=== PATIENT | female | born 1955 | race Caucasian/White ===

== ENCOUNTER 2020-03-15 08:00 | Day surgery (SDC) | payer MEDICARE, OTHER ==
[2020-03-14 09:46] VITALS: BMI 34.5
[~2020-03-15 08:00] MED LIST: LACTATED RINGERS 1,000 ML IV SCH; LIDOCAINE 1% (10MG/ML) FOR IV START INTRADERMA PRN
[2020-03-15 08:35] VITALS: RESP 16; TEMP 97.4
[2020-03-15] MEDS ORDERED: PROPOFOL 10 MG/ML 20 ML VIAL IV ONE (08:35)
[2020-03-15] MEDS ORDERED: LIDOCAINE 1% INJ 10MG/ML (20 ML MDV) ONE (08:35)
[2020-03-15] MEDS ORDERED: LACTATED RINGERS 1,000 ML IV ONE (08:37)
[2020-03-15 08:41] LABS: Glucose,Whole Blood 174 mg/dL (75-99)
--- NOTE | 2020-03-15 08:55 | P.PCN ---
Date of Procedure: 03/15/20 Procedure(s) Performed: BRIEF HISTORY: Patient is a 65-year-old pleasant white female scheduled for an elective colonoscopy as a part of evaluation of positive cologuard PROCEDURE PERFORMED: Colonoscopy. PREOPERATIVE DIAGNOSIS: Positive cologuard. IV sedation per Anesthesia. PROCEDURE: After informed consent was obtained, the patient, was brought into the endoscopy unit. IV sedation was administered by Anesthesia under continuous monitoring. Digital rectal examination was normal. Initially the Olympus CF-160 flexible video colonoscope was then inserted in the rectum, gradually advanced into the cecum without any difficulty. Careful examination was performed as the scope was gradually being withdrawn. Ileocecal valve and the appendiceal orifice were visualized and appeared normal. Prep was excellent. Mucosa of the cecum, ascending colon, transverse colon, descending colon, sigmoid colon, and rectum appeared normal. Retroflexion was performed in the rectum and no lesions were seen. The patient tolerated the procedure well. IMPRESSION: Normal-appearing colon from rectum to cecum with no evidence of colorectal neoplasia . RECOMMENDATIONS: Findings of this examination were discussed with the patient as well as a family. She was advised to have a repeat screening colonoscopy in 10 years.
[2020-03-15 09:14] VITALS: BP 117/58; PULSE 56
== END 2020-03-15 09:35 | disposition home or self-care (01) ==
LOC: ORWHC2ENDO 08:00
PROVIDERS: ATTEND Internal Medicine Gastroenterology
DX: R19.5 Other fecal abnormalities (principal); I10 Essential (primary) hypertension; E78.5 Hyperlipidemia, unspecified; E11.9 Type 2 diabetes mellitus without complications; Z79.84 Long term (current) use of oral hypoglycemic drugs; Z79.899 Other long term (current) drug therapy; Z98.890 Other specified postprocedural states; Z88.0 Allergy status to penicillin
CPT/HCPCS: 45378; J2001; J2704

== ENCOUNTER 2022-06-24 08:06 | Day surgery (SDC) | payer MEDICARE, OTHER ==
[2022-06-23 10:24] VITALS: BMI 32.5
[~2022-06-24 08:06] MED LIST changes: -LIDOCAINE 1% (10MG/ML) FOR IV START INTRADERMA PRN; +TETRACAINE 0.5% OPHTH (PF) DROPS 4 ML BTL OP PRN
[2022-06-24] MEDS: CYCLOPENTOLATE 1% OPHTH SOLN 2 ML BTL OP PRN ×3 (09:13→09:25)
[2022-06-24] MEDS: PHENYLEPHRINE 2.5% OPHTH DRP 2ML OP PRN ×3 (09:16→09:28)
[2022-06-24 09:18] VITALS: TEMP 97.7
[2022-06-24 09:35] LABS: Glucose,Whole Blood 171 mg/dL (70-110)
[2022-06-24] MEDS ORDERED: MIDAZOLAM 2 MG/2 ML VIAL ONE (09:50)
[2022-06-24] MEDS ORDERED: fentaNYL (PF) 50 MCG/ML 2 ML AMP ONE (09:50)
[2022-06-24] MEDS ORDERED: EPINEPHrine (PF) 0.3 ML in BALANCED SALT IRRIG SOLN COMB2 500 ML IRRIGATION ONE (10:14)
[2022-06-24] MEDS ORDERED: HYALURONATE SODIUM INTRAOCULAR 1 EACH SYRINGE (12MG/ML) INTRAOCULA ONE (10:21)
[2022-06-24] MEDS ORDERED: BALANCED SALT IRRIG SOLN COMB2 15 ML IRRIG.SOLN IRRIGATION ONE (10:21)
[2022-06-24] MEDS ORDERED: LIDOCAINE 1% (PF) 10MG/ML VIAL MISCELLANE ONE (10:22)
[2022-06-24] MEDS ORDERED: ACETYLCHOLINE CHLORIDE 10 MG/ML 2 ML KIT INTRAOCULA ONE (10:22)
[2022-06-24] MEDS ORDERED: TRYPAN BLUE 0.06% SYRINGE 0.5 ML SYRINGE INTRAOCULA ONE (10:25)
[2022-06-24] MEDS: MOXIFLOXACIN HCL 0.5% DROPS 3 ML BTL OP PRN ×2 (10:28→11:46)
[2022-06-24] MEDS: TIMOLOL 0.5% OPHTH DROPS 5 ML BTL OP PRN ×2 (10:28→11:46)
[2022-06-24] MEDS ORDERED: ATROPINE OPHTH SOLN 1% 2 ML BTL RIGHT EYE ONE ×2 (10:29→11:46)
--- NOTE | 2022-06-24 11:49 | P.OP ---
Date of Procedure: 06/24/22 Preoperative Diagnosis: NS & Fuch's dystrophy Postoperative Diagnosis: same Procedure(s) Performed: PIOL, OD & DMEK Implants: MX60E 20.50 Anesthesia: MAC Surgeon: Milton Jim Pathology: none sent Condition: stable Disposition: same day Indications for Procedure: blurry vision and K dystrophy Operative Findings: no complications
[2022-06-24 12:19] VITALS: RESP 16
[2022-06-24 12:53] VITALS: PULSE 61
[2022-06-24 12:55] VITALS: BP 131/80
--- NOTE | 2022-06-25 11:15 | OP ---
OPERATIVE REPORT PROCEDURES PERFORMED: Phacoemulsification of cataract and intraocular lens implant of the right eye with Descemet membrane and endothelial keratoplasty, right eye. PREOPERATIVE DIAGNOSES: 1. Nuclear sclerosis. 2. Fuchs endothelial dystrophy. POSTOPERATIVE DIAGNOSES: 1. Nuclear sclerosis. 2. Fuchs endothelial dystrophy. ANESTHESIA: Topical. ESTIMATED BLOOD LOSS: None. SPECIMEN TAKEN: None. NARRATIVE: After obtaining the appropriate consent, the patient was brought to the operating room. There, she was placed under cardiac monitoring and prepped and draped in the usual sterile manner. She was approached from her right temporal side, and at the 11 o'clock position, an MVR blade was used to create a paracentesis port. Through this opening, 1% Xylocaine MPF 50:50 mixed with balanced salt solution was injected into the anterior chamber. This was followed by stabilization of the anterior chamber with Amvisc. At the 9 o'clock position, a 2.5 mm keratome was used to create a self-sealing corneal flap incision. Through this opening, a cystotome was introduced to begin a continuous tear capsulorrhexis, which was then completed using the Utrata forceps. Hydrodissection and hydrodelineation of the lens were accomplished with balanced salt solution. Phacoemulsification of the lens utilizing phaco chop was accomplished in 16.21 seconds at 13% power. Additional Xylocaine MPF was instilled into the anterior chamber. This was followed by removal of all remaining cortical material and careful polishing of the posterior capsule under irrigation and aspiration. Additional Amvisc was then used to stabilize the anterior chamber, and a Bausch and Lomb MX60E 20.5 diopter posterior chamber intraocular lens was then inserted into the capsular bag without difficulty. All remaining viscoelastic was then removed from in and around the intraocular lens as completely as possible as well as the anterior chamber. Miochol was then used to bring about pupillary miosis. This was then followed by installation of trypan blue, which was left in the eye for 3 minutes. This was irrigated away with balanced salt solution, and Amvisc was then used to stabilize the anterior chamber. Three additional paracenteses were performed in each of the diagonal quadrants, and an 8 mm Leilani trephine was used to define an area central over the Purkinje reflex, and this was inked with gentian marlon. Amvisc was used to stabilize the anterior chamber, and using a Morales-Sinskey hook, the area under the anterior corneal scoring was scratched with the Morales-Sinskey hook outlining the posterior aspect of the cornea, where endothelium was intended to be removed, and an endothelial tissue removing instrument was then used to remove this endothelium from the central portion of the cornea, and all remnants of the loosened epithelium were removed from the anterior chamber and checked on a wet Merocel sponge. Once confirmation of any remaining endothelium loose within the anterior chamber was confirmed, irrigation and aspiration of the entire anterior chamber to thoroughly wash any viscoelastic from that area. A small amount of balanced salt solution was used to slightly deepen the anterior chamber. The temporal incision had been confirmed adequate for the Beth tube introduction while the viscoelastic remained in the anterior chamber in preparation for the endothelial stripping. Attention was then directed to the donor tissue identified as [id number] cornea in Optisol left posterior layer only. This was already pre-loaded in a Beth tube, and a syringe half-filled with balanced salt solution was used to transport the tissue to the patient's eye. Once the tissue was brought towards the patient's eye, care was used to deliver the donor tissue into the anterior chamber, and this was immediately followed by closure of the temporal incision with 10-0 suture. Careful manipulation of the anterior chamber through the patient's cornea with 27-gauge cannulas was able to unroll the donor tissue into place. Initially, it was noted that the tissue had initially unrolled with the endothelial side up, which required 180- degree rotation of the donor tissue. However, once this was finally accomplished and the tissue was positioned into the center of the cornea, a small air bubble was used to confirm the proper orientation of the donor tissue. Initial positioning of the tissue required a couple of additional manipulations to better center the donor over the host stromal bed. Once this was accomplished as closely as possible as there seemed to be a propensity for the tissue to not center exactly centrally as intended, an air bubble was placed followed by 20% SF6 to tamponade the eye, which left the eye over- pressurized for about 20 minutes. The patient did perceive light through the entire time of the tamponading process. At the end of 20 minutes, a moderate portion of the SF6 gas was replaced with balanced salt solution, and the eye was approximately 50% filled with gas bubble. At this point, the patient received 2 drops of moxifloxacin, 2 drops of timolol, and 2 drops of 1% atropine. She was then shielded and returned to outpatient recovery, where she continued to lie on her back for an additional hour prior to confirmation of proper positioning of the tissue at a slit-lamp. Once it was identified that it was in good position, the patient was then released to home from outpatient surgery. There were no complications from the procedure itself, and she tolerated it well. MMFRANCISCO J / DEN: [id number] /
== END 2022-06-24 13:28 | disposition home or self-care (01) ==
LOC: OR 08:06
PROVIDERS: ATTEND Ophthalmology
DX: H25.11 Age-related nuclear cataract, right eye (principal); H18.511 Endothelial corneal dystrophy, right eye; E11.9 Type 2 diabetes mellitus without complications; I11.9 Hypertensive heart disease without heart failure; F32.A Depression, unspecified; H52.13 Myopia, bilateral; H52.4 Presbyopia; E78.5 Hyperlipidemia, unspecified; Z88.0 Allergy status to penicillin; Z79.899 Other long term (current) drug therapy
CPT/HCPCS: 66984; 87070; 87205; 87075; 65756; V2785; C1780; J2250; J0171; J3010; J2001

== ENCOUNTER 2024-11-15 08:06 | Day surgery (SDC) | payer MEDICARE ==
[2024-11-14 13:28] VITALS: BMI 29.7
[~2024-11-15 08:06] MED LIST changes: +ATROPINE OPHTH SOLN 1% 5ML BTL OPHTHALMIC PRN; -LACTATED RINGERS 1,000 ML IV SCH; +MOXIFLOXACIN HCL 0.5% DROPS 3 ML BTL OP PRN; +TIMOLOL 0.5% OPHTH DROPS 5 ML BTL OP PRN
[2024-11-15] MEDS: IV FLUID CONTINUATION 1,000 ML IV ONE (08:27)
[2024-11-15 08:29] VITALS: TEMP 97.2
[2024-11-15] MEDS: CYCLOPENTOLATE 1% OPHTH SOLN 2 ML BTL OP PRN (08:33)
[2024-11-15] MEDS: PHENYLEPHRINE 2.5% OPHTH DRP 2ML OP PRN (08:36)
[2024-11-15 08:48] LABS: Glucose,Whole Blood 139 mg/dL (70-110)
[2024-11-15] MEDS: LACTATED RINGERS 1,000 ML IV SCH (08:52)
[2024-11-15] MEDS ORDERED: MIDAZOLAM 2 MG/2 ML VIAL ONE (09:29)
[2024-11-15] MEDS ORDERED: fentaNYL (PF) 50 MCG/ML 2 ML AMP ONE (09:29)
[2024-11-15] MEDS: HYALURONATE SODIUM INTRAOCULAR 1 EACH SYRINGE (12MG/ML) INTRAOCULA ONE ×2 (09:50)
[2024-11-15] MEDS: BALANCED SALT IRRIG SOLN COMB2 15 ML IRRIG.SOLN INTRAOCULA ONE (09:50)
[2024-11-15] MEDS: ACETYLCHOLINE CHLORIDE 10 MG/ML 2 ML KIT INTRAOCULA ONE (09:50)
[2024-11-15] MEDS: EPINEPHrine (PF) 0.3 ML in BALANCED SALT IRRIG SOLN COMB2 500 ML IRRIGATION ONE (09:50)
[2024-11-15] MEDS: TRYPAN BLUE 0.06% SYRINGE 0.5 ML SYRINGE INTRAOCULA ONE (09:50)
[2024-11-15] MEDS: BALANCED SALT IRRIG SOLN COMB2 500 ML IRRIGATION ONE (09:50)
[2024-11-15] MEDS: LIDOCAINE 1% (PF) 10MG/ML VIAL INTRAARTIC ONE ×2 (09:50)
--- NOTE | 2024-11-15 11:18 | P.OP ---
Date of Procedure: 11/15/24 Preoperative Diagnosis: NS & Fuch's dystrophy Postoperative Diagnosis: same Procedure(s) Performed: PIOL & DMEK OS Implants: MX60E 21.00 Anesthesia: MAC Surgeon: Milton Jim Pathology: none sent Condition: stable Disposition: same day Indications for Procedure: blurry vision and corneal failure Operative Findings: no complications
[2024-11-15 11:34] LABS: Glucose,Whole Blood 139 mg/dL (70-110)
[2024-11-15] MEDS: ACETAMINOPHEN TAB 500 MG TAB PO STA (12:49)
[2024-11-15 12:52] VITALS: RESP 17
[2024-11-15 13:28] VITALS: BP 155/72; PULSE 60
--- NOTE | 2024-11-15 23:25 | OP ---
OPERATIVE REPORT DATE OF SERVICE : 11/15/2024 PROCEDURES: Phacoemulsification of cataract and intraocular lens implant of the left eye with descemet membrane and endothelial keratoplasty of the left eye. PREOPERATIVE DIAGNOSES: Nuclear sclerosis and Fuchs dystrophy. POSTOPERATIVE DIAGNOSES: Nuclear sclerosis and Fuchs dystrophy. ANESTHESIA: Topical. ESTIMATED BLOOD LOSS: None. SPECIMEN TAKEN: None. NARRATIVE: After obtaining the appropriate consent, the patient was brought to the operating room. There, she was placed under cardiac monitoring and prepped and draped in the usual sterile manner. She was approached from her left temporal side and at the 5 o'clock position, an MVR blade was used to create a paracentesis port. Through this opening, 1% Xylocaine MPF 50:50 mix with balanced salt solution was injected into the anterior chamber. This was followed by Trypan blue which was allowed to dwell in the eye for about 3 minutes. This was irrigated away with balanced salt solution and Amvisc was used to stabilize the anterior chamber. Three other paracenteses in the diagonal quadrants were performed with the MVR blade. At the 3 o'clock position, a 2.5 mm keratome was used to create a self-sealing corneal flap incision. Through this opening, a cystotome was introduced to begin a continuous tear capsulorrhexis which was completed with Utrata forceps. Hydrodissection and hydrodelineation of the lens was accomplished with balanced salt solution. Phacoemulsification lens utilizing phaco chop was accomplished in 19 seconds at 18.9% power. Additional Xylocaine MPF was instilled into the anterior chamber and the removal of the remaining cortical material under irrigation and aspiration as well as careful polishing of the posterior capsule in the capsule vacuum mode was completed. Amvisc was then used to stabilize the capsular bag. A Bausch and Lomb MX 60E 21.0 diopter posterior chamber intraocular lens was then injected into the left capsular bag without any difficulty. The remaining viscoelastic was then removed under irrigation and aspiration, and in and around the intraocular lens within the bag. Miochol was then instilled into the anterior chamber to bring about pupillary miosis. The temporal incision was adjusted for the Beth tube device to permit descemet transfer from transport into the patient's eye. At this point, an 8 mm Leilani trephine was placed over the central Purkinje reflex on the patient's eye and very carefully pushed into the epithelium. Several gilbert a gentian marlon were used to enhance the groove placed by the trephine device. A small amount of Amvisc was placed into the anterior chamber and a Andrew-Juarez hook was then used to incise descemet membrane on the inside of the patient's eye staying within balance of the 8 mm brittny on the anterior surface of the cornea. Once descemet was incised, descemet stripping was accomplished. With the appropriate descemet stripping tool, removing the entire central 8 mm of descemet membrane from the patient's cornea. This was confirmed by placement of the removed tissue on a Weck-Lucy sponge. Once all descemet membrane was confirmed, removed from the treatment bed, irrigation and aspiration was carefully performed to remove all traces of Amvisc from the anterior chamber. At this point, the donor tissue was then brought to the patient's eye and the tissue was injected into the anterior chamber. However, on removal of the Beth tube, the tissue followed out and rested on the patient's temporal conjunctiva. Using a toothless forceps, the descemet tissue was then placed back in a Cassidy dish of balanced salt solution and was carefully aspirated back into the delivery Beth tube device. At this time, a little less aqueous fluid was left in the anterior chamber and the donor tissue was then injected and trapped within the anterior chamber. To secure the temporal incision, a single 10-0 nylon suture in an X fashion was used to close the temporal wound. Controlling the depth of the anterior chamber was accomplished by either adding or removing fluid, balanced salt solution through the paracentesis port and various tapping techniques were used to both center as well as unfold the descemet tissue in the anterior chamber of the eye under the bed of the host stromal corneal tissue that was laid bare of its descemet material. Small air bubble was then used to bougie the tissue into place after inspection using 20% SF6. The anterior chamber was over pressurized to approximately 30 mmHg. The patient was able to appreciate light within the eye and the gas bubble was allowed to dwell in the patient's eye for 20 minutes. At the end of this time, careful refluxing of the SF6 from the anterior chamber while adding aqueous to the anterior chamber reduced the size of the bubble to approximately 45% to 50% of the anterior chamber. The patient then received 2 drops of 0.5% timolol, 2 drops of 0.5% moxifloxacin, and 2 drops of 1% atropine. She was then returned to the outpatient recovery area where she remained supine for an additional hour. She was examined with a slit lamp at the bedside and was confirmed stable to be released to go home. Shield without any patch was applied directly to the eye and she was allowed to be released to home without any difficulties. There were no complications from this procedure. MMFRANCISCO J / MURIELN: [id number] / PABLO
== END 2024-11-15 13:29 | disposition home or self-care (01) ==
LOC: OR 08:06
PROVIDERS: ATTEND Ophthalmology
DX: H25.12 Age-related nuclear cataract, left eye (principal); H18.513 Endothelial corneal dystrophy, bilateral; T86.841 Corneal transplant failure; I10 Essential (primary) hypertension; E11.9 Type 2 diabetes mellitus without complications; I48.91 Unspecified atrial fibrillation
CPT/HCPCS: 87070; 87205; 87075; 66984; 65756; V2785; C1780; J2250; J3010; J2003

== ENCOUNTER 2024-12-06 06:59 | Day surgery (SDC) | payer MEDICARE ==
[2024-12-04 11:32] VITALS: BMI 29.4
[~2024-12-06 06:59] MED LIST changes: -ATROPINE OPHTH SOLN 1% 5ML BTL OPHTHALMIC PRN; +LACTATED RINGERS 1,000 ML IV SCH; -MOXIFLOXACIN HCL 0.5% DROPS 3 ML BTL OP PRN; -TETRACAINE 0.5% OPHTH (PF) DROPS 4 ML BTL OP PRN; -TIMOLOL 0.5% OPHTH DROPS 5 ML BTL OP PRN
[2024-12-06 07:34] VITALS: TEMP 97.2
[2024-12-06] MEDS: PILOCARPINE 2% OPHTH DROPS 15 ML BTL OP PRN (07:38)
[2024-12-06] MEDS: LACTATED RINGERS 1,000 ML IV ONE (07:59)
[2024-12-06 08:05] LABS: Glucose,Whole Blood 142 mg/dL (70-110)
[2024-12-06] MEDS ORDERED: MIDAZOLAM 2 MG/2 ML VIAL ONE (08:15)
[2024-12-06] MEDS ORDERED: fentaNYL (PF) 50 MCG/ML 2 ML AMP ONE (08:15)
[2024-12-06] MEDS: BALANCED SALT IRRIG SOLN COMB2 15 ML IRRIG.SOLN IRRIGATION ONE (08:43)
[2024-12-06] MEDS: TETRACAINE 0.5% OPHTH (PF) DROPS 4 ML BTL LEFT EYE ONE (08:43)
[2024-12-06] MEDS: BALANCED SALT IRRIG SOLN COMB2 500 ML IRRIGATION ONE (08:48)
[2024-12-06] MEDS: ATROPINE OPHTH SOLN 1% 5ML BTL OPHTHALMIC PRN (08:50)
[2024-12-06] MEDS: MOXIFLOXACIN HCL 0.5% DROPS 3 ML BTL OP PRN (08:50)
[2024-12-06] MEDS: TIMOLOL 0.5% OPHTH DROPS 5 ML BTL OP PRN (08:50)
--- NOTE | 2024-12-06 10:18 | P.OP ---
Date of Procedure: 12/06/24 Preoperative Diagnosis: 1 graft failure Postoperative Diagnosis: same Procedure(s) Performed: DMEK Implants: none Anesthesia: MAC Surgeon: Milton Jim Pathology: none sent Condition: stable Disposition: same day Indications for Procedure: corneal edema, 1 graft failure for endothelial dystrophy Operative Findings: no complications
[2024-12-06 10:38] VITALS: RESP 16
[2024-12-06 11:11] VITALS: PULSE 60
[2024-12-06] MEDS: ACETAMINOPHEN TAB 500 MG TAB PO ONE (11:51)
[2024-12-06 12:01] VITALS: BP 150/80
--- NOTE | 2024-12-07 00:50 | OP ---
OPERATIVE REPORT DATE OF SERVICE : 12/06/2024 PROCEDURES: Descemet's membrane and endothelial keratoplasty of the left eye. PREOPERATIVE DIAGNOSIS: Primary graft failure of Descemet's membrane transplant. POSTOPERATIVE DIAGNOSIS: Primary graft failure of Descemet's membrane transplant ANESTHESIA: Topical. ESTIMATED BLOOD LOSS: None. SPECIMENS TAKEN: None. NARRATIVE: After obtaining the appropriate consent, the patient was brought into the operating room. There, she was placed under cardiac monitoring and prepped and draped in the usual sterile manner. She was approached from her left temporal side and 4 paracenteses were performed in each of the diagonal quadrants with an MVR blade. This was followed by opening the temporal incision with removal of the existing suture and an enlarging the temporal incision with a 2.5 mm keratome. 1% xylocaine MPF was instilled into the anterior chamber, and identification of the failed transplant tissue was noted at about 5 o'clock, resting on the anterior surface of the iris. This was retrieved in total from the anterior chamber. The new transplant tissue identified is [id number], [id number] was brought to the field and transferred to the anterior chamber the eye without any difficulty. The temporal incision was closed immediately to trap the tissue within the anterior chamber and a single 10-0 nylon suture was used to secure the temporal incision with an X style suture, doing various tapping motions on the anterior chamber and controlling the chamber depth. The donor tissue was generally able to be moved into the proper position within the bed of the posterior aspect of the patient's cornea. Difficulty was encountered, however, with getting the corneal tissue to lay flat effectively, the Descemet's membrane became "Saran wrapped" upon itself and was unable to be . Approximately, 30% of the donor tissue appeared reasonably clear and in a good position, and therefore, a 20% SF6 gas bubble was then placed into the anterior chamber to hold the Descemet's membrane transplant tissue in place. The patient remained in this position for about 20 minutes. The excess gas was removed from the anterior chamber, leaving the anterior chamber filled with about 50% SF6 gas. The patient was then returned to the recovery area where after an hour of lying supine, she was examined at a slit-lamp and deemed able to return to home. At the end of the initial part of the procedure, she had received 0.5% timolol followed by 0.5% moxifloxacin and 1% atropine to the left eye. She was not patched; however, she was carefully shielded in the usual manner. There were no other difficulties encountered during the procedure, and she tolerated the procedure reasonably well. JENNIFER / DEN: [id number] / MTDD
== END 2024-12-06 12:36 | disposition home or self-care (01) ==
LOC: OR 06:59
PROVIDERS: ATTEND Ophthalmology
DX: T86.8412 Corneal transplant failure, left eye (principal); H18.512 Endothelial corneal dystrophy, left eye; K21.9 Gastro-esophageal reflux disease without esophagitis; I10 Essential (primary) hypertension; E78.5 Hyperlipidemia, unspecified; E11.9 Type 2 diabetes mellitus without complications; Z95.0 Presence of cardiac pacemaker; F41.9 Anxiety disorder, unspecified; Z88.0 Allergy status to penicillin; Z88.8 Allergy status to other drugs, medicaments and biological substances; Z79.02 Long term (current) use of antithrombotics/antiplatelets; Z79.84 Long term (current) use of oral hypoglycemic drugs; Z79.899 Other long term (current) drug therapy
CPT/HCPCS: 87070; 87205; 65756; J2250; J3010